=== PATIENT | female | born 2005 | race Caucasian/White ===

== ENCOUNTER 2023-11-02 14:31 | Outpatient (CLI) | payer OTHER | END 2023-11-02 14:32 | disposition home or self-care (01) | LOC: CSHRAD 14:31 | PROVIDERS: ATTEND Family Medicine | DX: R42 Dizziness and giddiness (principal); M43.8X2 Other specified deforming dorsopathies, cervical region; M50.322 Other cervical disc degeneration at C5-C6 level; M50.323 Other cervical disc degeneration at C6-C7 level | CPT/HCPCS: 72040 ==